=== PATIENT | male | born 2000 | race Caucasian/White ===

== ENCOUNTER 2022-09-06 17:19 | Emergency (ER) | payer MEDICAID ==
[2022-09-06 17:37] VITALS: RESP 14; TEMP 99.3
[2022-09-06 18:23] VITALS: O2SAT 97
--- NOTE | 2022-09-06 18:42 | ERPHSYRPT ---
- History of Present Illness Time Seen by Provider: 09/06/22 17:34 Source: patient Exam Limitations: no limitations Patient Subjective Stated Complaint: pt states that he was playing with the cat and tripped and fell on his finger Triage Nursing Assessment: pt ambulated into the er; pt is axo x4; c/o rt middle finger injury; swelling and tenderness present to rt middle finger; good cap refill to rt hand; strong rt radial pulse; limited ROM to rt middle finger; skin PDW; no respiratory distress present; vitals wnl Physician History: 22-year-old emwgg-ulay-nuymxeaq male presented in the ER with chief complaint of right third digit interphalangeal joint pain after he fell while chasing his cat and hyperextended finger. Mild to moderate dull aching to sharp pain with movements and better with being still. No numbness or tingling in the distal tip. No injury anywhere else. Occurred: this afternoon Method of Injury: fell Quality: sharpness Severity of Pain-Max: moderate Severity of Pain-Current: moderate Extremities Pain Location: 2nd finger: right Modifying Factors: Improves With: immobilization. Worsens With: movement Associated Symptoms: none Allergies/Adverse Reactions: hydrocodone Allergy (Verified 09/06/22 17:25) Hives Home Medications: Fluticasone Propionate [Flonase NASAL] 1 spray NS DAILY 09/06/22 [History] Montelukast Sodium 10 mg [Singulair 10 MG] 10 mg PO DAILY 09/06/22 [History] Hx Tetanus, Diphtheria Vaccination/Date Given: Yes Hx Influenza Vaccination/Date Given: No Hx Pneumococcal Vaccination/Date Given: No Immunizations Up to Date: Yes Travel Risk - International Travel Have you traveled outside of the country in past 3 weeks: No - Coronavirus Screening Are you exhibiting any of the following symptoms?: No Close contact with a COVID-19 positive Pt in past 14-21 Days: No - Vaccine Status Have you recieved a Covid-19 vaccination: No - Review of Systems Constitutional: No Symptoms Ears, Nose, & Throat: No Symptoms Respiratory: No Symptoms Cardiac: No Symptoms Abdominal/Gastrointestinal: No Symptoms Genitourinary Symptoms: No Symptoms Musculoskeletal: Injury, Joint Pain, Joint Swelling Skin: No Symptoms Neurological: No Symptoms Hematologic/Lymphatic: No Symptoms - Past Medical History Pertinent Past Medical History: Yes Other Medical History: allergies - Past Surgical History Past Surgical History: No - Social History Smoking Status: Never smoker Exposure to second hand smoke: No Drug Use: none Patient Lives Alone: No - Nursing Vital Signs Nursing Vital Signs: Initial Vital Signs Blood Pressure 124/63 09/06/22 17:25 O2 Sat by Pulse Oximetry 97 09/06/22 17:25 Pain Scale Pain Intensity 5 - Physical Exam General Appearance: no apparent distress Neck Exam: normal inspection, full range of motion Cardiovascular/Respiratory Exam: normal breath sounds, regular rate/rhythm Wrist Exam: normal inspection, non-tender, no evidence of injury, normal ROM Hand Exam: bone tenderness (Right third digit proximal interphalangeal joint swelling and tenderness. Intact range of motion. Distal neurovascular intact.) Neuro/Tendon Exam: normal sensation, normal motor functions, normal tendon functions Mental Status Exam: alert, oriented x 3, cooperative Skin Exam: normal color SpO2 Interpretation: normal SpO2: 97 O2 Delivery: Room Air Ordered Tests: Active Orders 24 hr Category Date Time Status FINGER(S) Stat Exams 09/06/22 17:28 Taken - Progress Progress: unchanged Progress Note: 09/06/22 18:40 22-year-old mzkwa-dyod-paupexla male presented in the ER with chief complaint of right third digit interphalangeal joint pain after he fell while chasing his cat and hyperextended finger. Mild to moderate dull aching to sharp pain with movements and better with being still. No numbness or tingling in the distal tip. No injury anywhere else. , Patient has tenderness and swelling proximal interphalangeal joint of third digit right hand. Intact range of motion. Distal neurovascular intact. X-rays reviewed by me reveal avulsion fracture of the second/middle phalanx, official report is pending. Placed in finger splint and outpatient orthopedics follow- up. Recommended Tylenol/ibuprofen. Counseled pt/family regarding: diagnosis, need for follow-up, rad results Medical Desision Making - Diagnostic Testing Diagnostic test were ordered, analyzed, and reviewed by me: Yes Radiological Interpretation: Interpreted by me, Reviewed by me - Departure Departure Disposition: Home Clinical Impression: Finger fracture, right Condition: Stable Critical Care Time: No Referrals: DOCTOR,NO FAMILY [Primary Care Provider] - Follow up/PCP as directed ORTHO - RITIKA,MARISELA, SOCIAL WORK NURSE [NON-STAFF PHY W/O PRIVILEGES] - Follow up/PCP as directed (Tomorrow for reevaluation) Instructions: Finger Fracture (DC) Additional Instructions: Intermittent ice application. Tylenol/ibuprofen as needed for pain. Follow-up with orthopedic surgery for reevaluation in the morning. Return to ER for any worsening. Prescriptions: Ibuprofen 600 mg PO Q6HPRN PRN 10 Days #20 tablet PRN Reason: Pain
[2022-09-06 18:59] VITALS: PULSE 73
[2022-09-06 19:00] VITALS: BP 99/72
--- NOTE | 2022-09-07 08:42 | XRAY ---
Indication: Pain and swelling following fall. Comparison: None 3 view right 3rd finger demonstrates tiny nondisplaced anterior avulsion fracture base middle phalanx with soft tissue swelling. No other bony, articular, or soft tissue abnormalities.
== END 2022-09-06 19:00 | disposition home or self-care (01) ==
LOC: ED 17:19
DX: S62.622A Displaced fracture of middle phalanx of right middle finger, initial encounter for closed fracture (principal); W01.0XXA Fall on same level from slipping, tripping and stumbling without subsequent striking against object, initial encounter; Y93.02 Activity, running; Z79.899 Other long term (current) drug therapy; Z28.310 Unvaccinated for COVID-19
CPT/HCPCS: 73140; 99282

== ENCOUNTER 2023-05-07 17:48 | Emergency (ER) | payer MEDICAID, OTHER ==
[2023-05-07 17:56] VITALS: TEMP 97.1
[2023-05-07] MEDS ORDERED: Adacel Vial IM ONE (18:07)
[2023-05-07] MEDS: Adacel Vial IM ONE (18:14)
--- NOTE | 2023-05-07 18:23 | ERPHSYRPT ---
- History of Present Illness Time Seen by Provider: 05/07/23 17:56 Source: patient Exam Limitations: no limitations Patient Subjective Stated Complaint: Pt states "I [place] crank[place] [employer] [place] and the lock didn't hold and it came back and hit my hand." Triage Nursing Assessment: PT presented alert and oriented X 3, skin pwd. Pt left hand has abrasion noted to medial second digit first knuckle. Physician History: 22-year-old male presents to our ED for evaluation of pain to his left index finger MCP. Patient states he was cranking up a tarp. The crank did not lock and it recoiled and hit his hand. Injury occurred just prior to arrival. Pain described as an ache that is localized. No radiation. Pain worse with movement and palpation. Pain improved with rest. No other injuries reported. Patient is otherwise healthy. He voices no other complaints or concerns at this time. Patient declined pain medication Portions of this note were created with voice recognition technology. There may be grammatical, spelling, punctuation or sound alike errors Occurred: just prior to arrival Method of Injury: direct blow Quality: constant Severity of Pain-Max: moderate Severity of Pain-Current: mild Extremities Pain Location: hand: left Modifying Factors: Improves With: movement Associated Symptoms: none Allergies/Adverse Reactions: hydrocodone Allergy (Verified 09/06/22 17:25) Hives Home Medications: No Reportable Medications [No Reported Medications] 05/07/23 [History] Hx Tetanus, Diphtheria Vaccination/Date Given: No Hx Influenza Vaccination/Date Given: No Hx Pneumococcal Vaccination/Date Given: No Immunizations Up to Date: No Travel Risk - International Travel Have you traveled outside of the country in past 3 weeks: No - Emerging Infectious Disease Are you exhibiting symptoms associated with any current EIDs: No - Review of Systems Constitutional: No Symptoms Eyes: No Symptoms Ears, Nose, & Throat: No Symptoms Respiratory: No Symptoms Cardiac: No Symptoms Abdominal/Gastrointestinal: No Symptoms Genitourinary Symptoms: No Symptoms Musculoskeletal: No Symptoms Skin: No Symptoms Neurological: No Symptoms Psychological: No Symptoms Endocrine: No Symptoms Hematologic/Lymphatic: No Symptoms Immunological/Allergic: No Symptoms - Past Medical History Pertinent Past Medical History: Yes Other Medical History: allergies - Past Surgical History Past Surgical History: No - Social History Smoking Status: Never smoker Exposure to second hand smoke: No Drug Use: none Patient Lives Alone: No - Nursing Vital Signs Nursing Vital Signs: Initial Vital Signs Temperature 97.1 F 05/07/23 17:53 Pulse Rate 81 05/07/23 17:53 Respiratory Rate 20 05/07/23 17:53 Blood Pressure 115/64 05/07/23 17:53 O2 Sat by Pulse Oximetry 99 05/07/23 17:53 Pain Scale Pain Intensity 3 - Physical Exam General Appearance: no apparent distress, alert Eyes, Ears, Nose, Throat Exam: normal ENT inspection, TMs normal, pharynx normal, moist mucous membranes Neck Exam: normal inspection, non-tender, supple, full range of motion Cardiovascular/Respiratory Exam: chest non-tender, normal breath sounds, regular rate/rhythm, no respiratory distress Abdominal Exam: non-tender, No guarding Back Exam: normal inspection, No vertebral tenderness Shoulder Exam: normal inspection, non-tender, no evidence of injury, normal ROM Elbow/Forearm Exam: normal inspection, non-tender, no evidence of injury, normal ROM Wrist Exam: normal inspection, non-tender, no evidence of injury, normal ROM Hand Exam: swelling (Some swelling and tenderness to the left index finger MCP. There is an overlying abrasion. The involved digits neurovascular intact compartments are soft cap refill less than 2 seconds.) Neuro/Tendon Exam: normal sensation, normal motor functions Mental Status Exam: alert, oriented x 3, cooperative Skin Exam: normal color, warm, dry SpO2 Interpretation: normal SpO2: 99 O2 Delivery: Room Air - Course Nursing assessment & vital signs reviewed: Yes - Radiology Exams Hand X-ray Interpretation: Interpreted by me (No fracture dislocations.) Ordered Tests: Active Orders 24 hr Category Date Time Status HAND (MINIMUM 3 VIEWS) Stat Exams 05/07/23 17:53 Taken Medication Summary Discontinued Medications Generic Name Dose Route Start Last Admin Trade Name Freq PRN Reason Stop Dose Admin Diphtheria/Tetanus/Acell Pertussis 0.5 ml 05/07/23 18:03 05/07/23 18:14 Tdap --Diph,Pertuss(Acell),Tet Vac/Pf 0.5 Ml Vial IM 05/07/23 18:04 0.5 ml .ONCE ONE Administration Diphtheria/Tetanus/Acell Pertussis Confirm 05/07/23 18:07 Tdap --Diph,Pertuss(Acell),Tet Vac/Pf 0.5 Ml Vial Administered 05/07/23 18:08 Dose 0.5 ml IM .STBuysight-Langhar ONE - Progress Progress: improved Progress Note: 22-year-old male presents emergency department for evaluation of injury to his left hand. Physical exam reveals an abrasion to the left second digit MCP. The involved extremities neurovascular intact distally compartments are soft cap refill less than 2 seconds. X-ray is negative for fracture or dislocation. Patient referred to the orthopedic clinic for follow-up. Patient declined pain medication. He voices no other complaints or concerns at this time. Portions of this note were created with voice recognition technology. There may be grammatical, spelling, punctuation or sound alike errors Complexity problem addressed is low acute uncomplicated No critical care time Complex of data reviewed and analyzed is moderate. Dr. Perdomo independently reviewed the x-rays of the involved hand. Risk of complication and or risk of morbidity/mortality patient management is low Vital stable. Time spent to discharge patient is approximately 15 minutes. Plan of care established for shared decision making. No social determinants of health present impede follow-up Portions of this note were created with voice recognition technology. There may be grammatical, spelling, punctuation or sound alike errors 05/07/23 18:25 Counseled pt/family regarding: diagnosis, need for follow-up, rad results - Departure Departure Disposition: Home Clinical Impression: Hand contusion Condition: Stable Critical Care Time: No Referrals: DOCTOR,NO FAMILY [Primary Care Provider] - Follow up/PCP as directed LAWANDA CRUZ MD [ACTIVE STAFF] - Follow up/PCP as directed Additional Instructions: Discharge/Care Plan ISABELLA VELIZ was seen on 05/07/23 in the Emergency Room. The patient was counseled regarding Diagnosis,Lab results, Imaging studies, need for follow up and when to return to the Emergency Room. Prescriptions given: Discharge Note I have spoken with the patient and/or caregivers. I have explained the patient's condition, diagnosis and treatment plan based on the information available to me at this time. I have answered the patient's and/or caregiver's questions and addressed any concerns. The patient and/or caregivers have as good understanding of the patient's diagnosis, condition and treatment plan as can be expected at this point. The vital signs have been stable. The patient's condition is stable and appropriate for discharge from the emergency department. The patient will pursue further outpatient evaluation with the primary care physician or other designated or consulting physician as outlined in the discharge instructions. The patient and/or caregivers are agreeable to this plan of care and follow-up instructions have been explained in detail. The patient and/or caregivers have received these instruction. The patient/and or caregivers are aware that any significant change in condition or worsening of symptoms should prompt an immediate return to this or the closest emergency department or call 911. Outpatient Orders: Ortho Referral Time Frame: 1 Day, Facility: [facility]. Hosp, Location: [facility]
[2023-05-07 18:41] VITALS: BP 127/67; PULSE 72; RESP 18; O2SAT 97
--- NOTE | 2023-05-08 08:46 | XRAY ---
Indication: Pain/laceration following injury. Comparison: None 3 view left hand obtained. No bony, articular, or soft tissue abnormalities.
== END 2023-05-07 18:41 | disposition home or self-care (01) ==
LOC: ED 17:48
DX: S60.222A Contusion of left hand, initial encounter (principal); W20.8XXA Other cause of strike by thrown, projected or falling object, initial encounter; Z23 Encounter for immunization
CPT/HCPCS: 73130; 90471; 90715; 99283